=== PATIENT | female | born 1970 | race Caucasian/White ===

== ENCOUNTER 2023-03-06 11:48 | Emergency (ER) | payer SELFPAY ==
[2023-03-06 11:49] VITALS: BP 142/80; PULSE 76; RESP 18; TEMP 36.6; O2SAT 100; BMI 35.4
[2023-03-06 12:05] VITALS: BMI 35.9
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
[2023-03-06] MEDS: Ibuprofen 600 MG Tablet PO (12:44)
== END 2023-03-06 12:56 | disposition home or self-care (01) ==
LOC: ED 12:54
PROVIDERS: Emergency Provider Emergency Medicine; Visit Provider Emergency Medicine
DX: S16.1XXA Strain of muscle, fascia and tendon at neck level, initial encounter (principal); S39.012A Strain of muscle, fascia and tendon of lower back, initial encounter; V63.6XXA Passenger in heavy transport vehicle injured in collision with car, pick-up truck or van in traffic accident, initial encounter; Y93.89 Activity, other specified; Y99.8 Other external cause status; Y92.488 Other paved roadways as the place of occurrence of the external cause
CPT/HCPCS: 99283